=== PATIENT | female | born 1975 | race Caucasian/White ===

== ENCOUNTER 2020-09-21 13:04 | Outpatient (CLI) | payer OTHER, SELFPAY ==
--- NOTE | ~2020-09-21 | XR_ITS ---
XR shoulder LT min 2V 09/21/2020 13:34 INDICATION: Left shoulder pain PROCEDURE: 4 views left shoulder COMPARISON: No prior studies for comparison. FINDINGS: Fracture, dislocation or subluxation is not identified. The soft tissues appear within norm al limits. No foreign bodies are identified. IMPRESSION: 1: NO ACUTE BONE OR JOINT ABNORMALITY IDENTIFIED. Reviewed, dictated and finalized at location A. L PARAPROFESSIONAL
== END 2020-09-21 13:05 | disposition home or self-care (01) ==
LOC: ANHIMG 13:14
PROVIDERS: PCP Family Medicine; Visit Provider Nurse Practitioner Family
DX: S49.92XA Unspecified injury of left shoulder and upper arm, initial encounter (principal)
CPT/HCPCS: 73030

== ENCOUNTER → 2020-09-26 07:49 | Outpatient (CLI) | payer OTHER, SELFPAY ==
--- NOTE | ~2020-09-26 | MR_ITS ---
EXAMINATION: MR shoulder LT wo con DATE: 09/26/2020 09:09 INDICATION: Left shoulder injury, initial encounter. TECHNIQUE: Magnetic resonance imaging (MRI) of the left shoulder was performed without intravenous co ntrast. Sequences included axial PD-weighted FS FSE, coronal oblique PD-weighted FS FSE and T2-weight ed FS FSE, and sagittal oblique T2-weighted FS FSE and T1-weighted FSE. COMPARISON: Left shoulder radiographs 09/21/2020 FINDINGS: Coracoacromial arch: The acromion undersurface is curved in morphology (type II). There is a mesoacromial os acromiale. Th e acromioclavicular joint is normal. There is a physiologic volume of fluid in subacromial/subdeltoid bursa. Rotator cuff: There is moderate supraspinatus tendinopathy and mild infraspinatus tendinopathy. Teres minor tendon is normal. Subscapularis tendon is normal. There is no asymmetric fatty atrophy of the rotator cuff m uscle bellies. Biceps tendon and glenoid labrum: Biceps tendon is in bicipital groove. Intra-articular biceps tendon is normal. The glenoid labrum is normal. Fluid: There is a small glenohumeral joint effusion. Bones/cartilage: There is deep fissuring of the anterior-inferior glenoid cartilage. Humeral head cartilage is normal. IMPRESSION: 1. Moderate rotator cuff tendinopathy. No tear. 2. Mild glenoid chondrosis. 3. Small glenohumeral joint effusion. Reviewed, dictated and finalized at location A. D MANAGER
== END ==
PROVIDERS: PCP Family Medicine; Visit Provider Nurse Practitioner Family
DX: S49.82XA Other specified injuries of left shoulder and upper arm, initial encounter (principal); M25.412 Effusion, left shoulder
CPT/HCPCS: 73221

== ENCOUNTER → 2022-07-06 15:49 | Outpatient (CLI) | payer OTHER, SELFPAY ==
--- NOTE | ~2022-07-06 | XR_ITS ---
EXAMINATION: XR chest 2V 07/06/2022 16:13 INDICATION: Shortness of breath PROCEDURE: 2 view chest COMPARISON: 07/13/2017 FINDINGS: The lungs are clear. The cardiomediastinal silhouette is within normal limits. There are no pleural effusions. There is no pneumothorax suspected. IMPRESSION: 1: NO ACUTE CARDIOPULMONARY DISEASE. Reviewed, dictated and finalized at location B.
--- NOTE | ~2022-07-06 | US_ITS ---
US thyroid INDICATION: Hypothyroidism TECHNIQUE: Real-time sonographic images of the thyroid gland were obtained. COMPARISON: No prior studies for comparison. FINDINGS: The right thyroid lobe measures 4.7 x 1.6 x 1.5 cm. The left thyroid lobe measures 4.1 x 1 .3 x 1.3 cm. There is normal echotexture and echogenicity throughout the thyroid gland. No discrete n odules identified. Normal vascular flow is present. IMPRESSION: 1. Normal thyroid without discrete nodule or abnormal vascularity. Reviewed, dictated and finalized at location B.
== END ==
PROVIDERS: PCP Nurse Practitioner Family; Visit Provider Nurse Practitioner Family
DX: R06.02 Shortness of breath (principal); E05.90 Thyrotoxicosis, unspecified without thyrotoxic crisis or storm
CPT/HCPCS: 71046; 76536

== ENCOUNTER 2023-02-13 07:51 | Outpatient (CLI) | payer OTHER, SELFPAY | END 2023-02-13 07:52 | disposition home or self-care (01) | LOC: ANHAUDASC 07:53 | PROVIDERS: PCP Nurse Practitioner Family; Visit Provider Otolaryngology | DX: H91.92 Unspecified hearing loss, left ear (principal) | CPT/HCPCS: 92557; 92567 ==

== ENCOUNTER 2023-03-01 08:26 | Outpatient (CLI) | payer OTHER, SELFPAY ==
--- NOTE | 2023-03-23 14:32 | WPDHOMESLEEP ---
Sleep Study - Home Unattended Date of Study: 03/01/23 Ordering Provider: Glenroy Francis APRN Interpreting Provider: Leslee Padilla MD Home Sleep Study Type: Watch PAT Height: 1.75 m Weight: 90.718 kg Body Mass Index: 29.5 Neck Circumference (inches): 14 [place]: 10 Reason for Sleep Study Snoring, unrefreshing sleep Sleep History Carey Gil is a 48-year-old woman female with anxiety and hyperlipidemia that had a sleep study ordered for evaluation of sleep apnea. 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 The patient denies awakening from sleep short of breath. She occasionally awakens at night with heartburn, belching or cough. She frequently snores and is frequently loud enough that others complain. He rarely has trouble sleeping when she has a cold. He denies waking up gasping for air throughout the night. She frequently has breathing problems at night observed by herself or others. She occasionally sweats excessively at night. She occasionally has heart palpitations or irregular heartbeats during the night. She occasionally falls asleep during the day. She rarely falls asleep while driving. She denies sleep paralysis, cataplexy and hypnagogic/hypnopompic hallucinations. She occasionally has trouble at school or work due to sleepiness. She denies feeling afraid of going to sleep. He rarely has nightmares. She occasionally remembers her dreams. She constantly has thoughts racing through her mind. She occasionally feels sad or depressed. She frequently has anxiety. She frequently has muscular tension. She denies noticing parts of her body jerk. She denies kicking during the night. She frequently has crawling and aching feelings in her legs but denies having leg pain during the night. She denies grinding her teeth during sleep and denies awakening with morning jaw pain. She denies being bothered by pain during the day and denies being awakened by pain during the night. She occasionally wakes up feeling stiff in the morning. She denies waking up with sore or achy muscles. She occasionally wakes up with pain in the neck, spine or other joints. She goes to bed between 9:30 to 10:30 p.m. on weekdays between 10-11 p.m. on the weekends. She is able to fall asleep immediately. She wakes up 2-4 times throughout the night for unknown reasons and it can take 30-90 minutes for her to fall back asleep. She wakes up at 5:00 a.m. on weekdays and between 6-7 a.m. on the weekends. She typically gets 6-7 hours of sleep per night. She will stay in bed for 15-45 minutes after waking up in the morning. She currently lives with her and 3 children. She does not consume any caffeinated beverages within 2 hours of bedtime. She does not engage in physical exercise before bedtime. She denies reading and watching television before falling asleep. She denies taking naps in the afternoon or the evening. She consumes 1-2 cups of caffeinated beverage per day. She will have 2-4 alcoholic beverages per month. She denies tobacco and recreational drug use. [facility] Past Medical History Medical History Adhesive capsulitis of left shoulder Adult BMI 29.0-29.9 kg/sq m BMI 28.0-28.9,adult BMI 30.0-30.9,adult Claustrophobia Hyperlipemia Rotator cuff tendonitis Family History Family History Father Alzheimer disease Mother Alzheimer disease Sibling No problems noted. Other Cerebrovascular accident Diabetes mellitus Family history of malignant neoplasm of breast High cholesterol Social History Social History Smoking status: Never smoker Second hand tobacco smoke exposure: No Alcohol intake: current Alcohol use details: 1 per month Substance use: never Substance use type: does not use Living arrangements: with [facility]
[2023-03-23 14:38] VITALS: BMI 29.5
== END 2023-03-08 14:36 | disposition home or self-care (01) ==
LOC: ANHCSM 08:27
PROVIDERS: PCP Nurse Practitioner Family; Visit Provider Nurse Practitioner Family
DX: G47.33 Obstructive sleep apnea (adult) (pediatric) (principal)
CPT/HCPCS: 95800

== ENCOUNTER 2023-04-07 14:37 | Outpatient (CLI) | payer OTHER, SELFPAY ==
--- NOTE | 2023-04-10 07:35 | WPDPFTINT ---
PFT Procedure Performed PFT Procedure Performed Spirometry with Pre/Post Bronchodilator Plethysmography (Lung Vol) Diffusing Cap (DLCO) Flow Vol Loop PFT Interpretation This is a pulmonary function test with pre and post-bronchodilator spirometry, plethysmography and diffusing capacity. The test was performed and results interpreted in accordance with the 2019 and 2005 ATS/ERS Task Force guidelines respectively using the Global Lung Function Initiative-2012 reference equations. Patient demonstrated good effort and cooperation. Reproducibility criteria were met. The quality of the pre bronchodilator spirometry maneuver was Grade A and post bronchodilator spirometry maneuver was Grade A. Findings: Spirometry: The contour the inspiratory and expiratory flow tracing are normal. The pre bronchodilator FVC is 3.80 L, 95% predicted. The pre bronchodilator FEV1 is 3.21 L, 101% predicted. The pre bronchodilator FEV1: FVC ratio was 85%. The post bronchodilator FVC is 3.52 L, representing a 7% decrease. The post bronchodilator FEV1 is 3.00 L, representing a 7% decrease. The post bronchodilator FEV1: FVC ratio was 85%. Plethysmography: The total lung capacity is 5.86 L, 103% predicted. The functional residual capacity is 2.81 L, 88% predicted. The residual volume is 1.98 L, 100% predicted. Diffusing capacity: The diffusing capacity unadjusted for hemoglobin and carboxyhemoglobin is 18.5, 76% predicted. The diffusing capacity adjusted for alveolar volume is 5.33, 120% predicted. Impression: The spirometry is normal without evidence of an obstructive abnormality. There is no significant improvement after inhaling a single dose of albuterol. The lung volumes are normal. The diffusing capacity is normal. There are no prior studies for comparison
--- NOTE | 2023-04-10 07:38 | WPDSIXMINUTE ---
Six Minute Walk Procedure Procedure Performed Pulmonary Stress Test (6 min walk) Six Minute Walk Six Minute Walk: This is a 6 minute walk test. The test was performed and interpreted in accordance with the 2014 ERS/ATS task force guidelines. Findings: The patient's resting room air oxygen saturation measured by pulse oximetry was 97% and heart rate was 84 bpm. Patient ambulated for 427 meters and oxygen saturation remained 90 to 97%. Heart rate at the end of the study was 106 bpm. The patient did not qualify for supplemental oxygen at rest or with ambulation. There are no prior studies for comparison.
== END 2023-04-07 14:38 | disposition home or self-care (01) ==
LOC: ANHPFT 14:41
PROVIDERS: PCP Nurse Practitioner Family; Visit Provider Nurse Practitioner Family
DX: R06.09 Other forms of dyspnea (principal)
CPT/HCPCS: 94060; 94618; 94726; 94729

== ENCOUNTER 2023-11-22 09:12 | Emergency (ER) | payer OTHER, SELFPAY ==
--- NOTE | ~2023-11-22 | XR_ITS ---
EXAMINATION: XR foot RT min 3V DATE: 11/22/2023 09:59 INDICATION: Lateral right foot pain. TECHNIQUE: 4 views of right foot were obtained. COMPARISON: None. FINDINGS: Bone alignment is normal. No fracture. There is mild osteoarthritis of first metatarsophala ngeal joint and second proximal interphalangeal joint. IMPRESSION: 1. Mild polyarticular osteoarthritis. Reviewed, dictated and finalized at location A. MAKER
[2023-11-22 09:31] VITALS: BP 118/82; PULSE 75; RESP 16; TEMP 36.2; O2SAT 97
--- NOTE | 2023-11-22 09:47 | ED.EXTPRO ---
HPI - Extremity Problem General Chief complaint: Extremity Injury, Lower Stated complaint: INJURED R FOOT Time Seen by Provider: 11/22/23 09:30 Source: patient and RN notes reviewed Mode of arrival: ambulatory Limitations: no limitations History of Present Illness HPI Narrative: Patient presents today complaining of right lateral foot pain. Denies any known injury or trauma. States pain increases when she is on her feet for long periods of time or with certain shoes she wears. Denies numbness or tingling. Currently rates her pain 3/10 and has tried no [id number] treatment prior to arrival. Patient states she came in today for evaluation because she was bringing in her son to be seen. Related Data Allergies Allergy/AdvReac Type Severity Reaction Status Date / Time No Known Allergies Allergy Verified 11/22/23 09:38 Review of Systems Review of Systems: CONSTITUTIONAL: Denies body aches, fever, chills, or sweats. EYES: Denies visual changes, redness, or discharge. ENT: Denies rhinorrhea, congestion, sore throat, or otalgia. CARDIOVASCULAR: Denies chest pain, palpitations, or edema. RESPIRATORY: Denies cough or dyspnea. GASTROINTESTINAL: Denies abdominal pain, nausea, vomiting, or diarrhea. GENITOURINARY: Denies dysuria or hematuria. SKIN: Denies rash, itching, or wounds. MUSCULOSKELETAL: Denies back pain, or myalgia.+ right foot pain NEUROLOGIC: Denies headache, numbness, tingling, or weakness. PSYCH: Denies depression or anxiety. [facility] Past Medical History Medical History Adhesive capsulitis of left shoulder Adult BMI 29.0-29.9 kg/sq m BMI 28.0-28.9,adult BMI 30.0-30.9,adult Claustrophobia Hyperlipemia Rotator cuff tendonitis Family History Family History Father Alzheimer disease Mother Alzheimer disease Sibling No problems noted. 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 Please see nursing chart for further information. There is no relevant family history pertinent to the presenting complaint Exam Narrative: GENERAL: Well-appearing, well-nourished, and in no acute distress. HEAD: Normocephalic, atraumatic. EYES: EOMI. No redness or drainage. Conjunctivae normal. ENT: Mucous membranes pink and moist. NECK: Normal AROM. CHEST: No respiratory distress. EXTREMITIES: Right foot: Patient localizes the pain to the 5th metatarsal, but this area is nontender to palpation. No edema, erythema, or ecchymosis. Distal sensation intact in all 5 toes. Capillary refill normal. Pedal pulse normal. Full range of motion of the ankle and toes without discomfort. SKIN: Warm, dry, no rash. Capillary refill normal. Normal skin turgor. NEURO: No focal deficits. Alert and oriented x3. Gait steady. PSYCH: Normal affect. No signs of depression or anxiety. Course Course Level of Care: Express Care Visit Vital Signs Vital signs: Vital Signs Temperature 97.2 F L 11/22/23 09:31 Pulse Rate 75 11/22/23 09:31 Respiratory Rate 16 11/22/23 09:31 Blood Pressure 118/82 11/22/23 09:31 Pulse Oximetry 97 11/22/23 09:31 Oxygen Delivery Room Air 11/22/23 09:
== END 2023-11-22 10:26 | disposition home or self-care (01) ==
PROVIDERS: Emergency Provider Nurse Practitioner; PCP Family Medicine
DX: M79.671 Pain in right foot (principal); E78.5 Hyperlipidemia, unspecified
CPT/HCPCS: 73630; 99213; G0463

== ENCOUNTER 2025-04-14 07:51 | Outpatient (CLI) | payer OTHER, SELFPAY ==
--- OUTSIDE RECORDS SUMMARY | 2025-04-14 07:54 | XMS_ITS | Clinical Summary ---
Author Organization [facility] Address [address] [facility] [place] [address] Care Team Providers Care Pot Liner Name Role Phone Jai Acuna MD Primary Care Provider [phone] Allergies No known active allergies Medications atorvastatin (LIPITOR) 20 mg tablet Take 10 mg by mouth late in the day . Active escitalopram oxalate (LEXAPRO) 10 mg tablet Take 5 mg by mouth daily Takes 1/2 tab(10 mg tab) total dose 5 mg . Active ergocalciferol (VITAMIN D2) 50,000 unit capsule Take 50,000 Units by mouth every 7 days. 06/24/2017 Active Active Problems Problem Noted Date Diagnosed Date Leukopenia 07/13/2017 Family History Medical History Relation Name Comments Healthy Brother 1 Healthy Brother 2 Diabetes Father Other Father Breast Cancer Mother Healthy Sister Relation Name Status Comments Brother 1 Alive Brother 2 Alive Father Alive Mother Sister Alive Social History Tobacco Use Types Packs/Day Years Used Date Smoking Tobacco: Never Alcohol Use Standard Drinks/Week Comments Yes 0 (1 standard drink = 0.6 oz pur e alcohol) occasional Comments No Sex and Gender Information Value Date Recorded Sex Assigned at Not on file Legal Sex Female 11:16 AM CDT Gender Identity Not on file Sexual Orientation Not on file Last Filed Vital Signs Vital Sign Reading Time Taken Comments Blood Pressure 113/68 07/21/2017 9:23 AM CDT Pulse 82 07/21/2017 9:23 AM CDT Temperature 36.8 C (98.3 F) 07/21/2017 9:23 AM CDT Respiratory Rate 16 07/21/2017 9:23 AM CDT Oxygen Saturation - - Inhaled Oxygen Concentration - - Weight 85.7 kg (189 lb) 07/21/2017 9:23 AM CDT Height 175.3 cm (5' 9) 07/21/2017 9:23 AM CDT Body Mass Index 27.91 07/21/2017 9:23 AM CDT Plan of Treatment Health Maintenance Due Date Last Done Comments DTAP/TDAP/TD VACCINES (1 - Tdap) 1993 HEPATITIS B VACCINES (1 of 3 - 19+ 3-dose series) 01/08 HPV/Cotest (21-29) 1995 CERVICAL CANCER SCREENING 01/27/2004 HPV/Cotest (30-65) 01/27/2004 PAP SMEAR 01/27/2004 BREAST CANCER SCREENING 2014 COLORECTAL SCREENING 2019 Colorectal Cancer Screening 2019 FIT-DNA Q 3 years 2019 FIT/FOBT Q 1 year 2019 Flex Sig/CT Colonography Q 5 years 2019 ZOSTER VACCINE (1 of 2) 01/27/2024 INFLUENZA VACCINE (#1) 2025 Insurance [employer] CHOICE POS II [facility] [id number] Care Teams Pot Liner Relationship Specialty Start Date End Date Jai Acuna MD [address] [place] [address] PCP - General Family Practice 07/04/17
--- OUTSIDE RECORDS SUMMARY | 2025-04-14 07:54 | XMS_ITS | Data Portability ---
Author Organization [place] - [facility] , [facility] Address [address] [place] [address] Assessment Encounter Date Assessment Date Assessment LastModified by Organization Details LastModified Time 10/09/2024 10/09/2024 patient will follow up with PCP in 2-3 days if no improvement discussed red flags and when to go to emergency room. Patient verbalized understanding of plan of care. [email or web address] Not available 10/09/2024 12:45:06 Plan of Treatment Reminders Order Date Submit Date Provider Last Modified By Organization Details Last Modified Time Details Appointments None recorded. Lab None recorded. Referral None recorded. Procedures None recorded. Surgeries None recorded. Imaging None recorded. Medication Orders cyclobenzap rine 10 mg tablet 2024 025 [facility], [address], [place], [id number], 14:22:34 naproxen 500 mg tablet 2024 025 [facility], [address], [place], [id number], 14:22:33 Zyrtec 10 mg tablet 2024 025 [facility], [address], [place], [id number], 12:47:10 amoxicillin 875 mg-potassiu m clavulanate 125 mg tablet 2024 025 [facility], [address], [place], [id number], 12:46:36 fluticasone propionate 50 mcg/actuati on nasal spray,suspe nsion 2024 025 [facility] #19359, [address], [place], [id number], 12:46:35 Patient TargetsNo targets recorded. Patient Instructions Encounter Date Encounter Id Patient Instructions Last Modified By Organization Details Last Modified Time 10/09/2024 [id number] Acute Sinusitis: Care Instructions [email or web address] Not available 10/09/2024 12:46:29 saline nasal washes: care instructions [email or web address] Not available 10/09/2024 12:46:29 Acute Sinusitis: Care Instructions [email or web address] Not available 10/09/2024 12:46:29 Acute Sinusitis: Care Instructions Not available 10/09/2024 12:46:29 10/16/2024 [id number] back pain: care instructions Not available 10/16/2024 14:22:26 back stretches: exercises Not available 10/16/2024 14:22:26 Summary of Today's Visit: Today, you shared that you're experiencing significant back pain, which began after having a cold and shoveling snow. The pain is primarily in the middle right side of your back, and it's challenging to stand or walk upright. You've been to a chiropractor, but following adjustments, your discomfort has persisted. Managing Back Pain: We suspect you have a muscle strain. To manage this, you'll be prescribed a muscle relaxer and an anti-inflammatory medication, which will be available at your [facility] in [place]. Remember, it's essential not to take muscle relaxers while driving or working, as they might cause drowsiness. Preferably, take them at bedtime or when you're not planning to go out. Home Care Instructions: At home, alternate between applying ice and heat to your back to help relieve the pain. Use a back support, which you can order online; some come with a removable gel pack that can be chilled or heated. This may help with comfort throughout the day, especially if you're sitting or standing for extended periods at work. Precautionary Measures: Avoid activities that could worsen your back strain, such as heavy lifting or sudden movements. Gentle stretches may help, but ensure they're not painful. If you notice any alarming symptoms like shooting pains down your legs, seek further medical attention immediately. Follow-Up Actions: - Start using the prescribed muscle relaxer and anti-inflammatory . - Purchase a suitable back support with a gel insert for cold and heat therapy. - Monitor your symptoms for any changes or worsening and seek in-person care if necessary. - Consider consulting urgent care if the pain does not improve or if you need additional pain relief options. Reach out promptly if there are new or worsening symptoms. Take care of yourself, Carey. Not available 10/16/2024 14:27:03 Reason for Referral None Reported. Problems Name Problem SNOMED Code Status Onset Date Resolution Date Notes Provider Name and Address Organization Details Recorded Time Acute low back pain 460232114 Active 025 DRAKE De Souza [address] [place] [address], [place], [address], [facility] - [facility] 14:19:10 Problem Notes None recorded. Medical Equipment None Reported. Allergies No known drug allergies Medications Name Sig Start Date Stop Date Status Note LastModified by Organization Details LastModified Time cyclobenzap rine 10 mg tablet Take 1 tablet 3 times a day by oral route for 7 days. 2024 active Not Available Not Available Not Avai lable Zyrtec 10 mg tablet Take 1 tablet every day by oral route. 2024 active Not Available Not Available Not Avai lable triamcinolo ne acetonide 0.1 % topical cream active [NOT AIRAM Cameron] Not Available Not Available Not Available fluticasone propionate 50 mcg/actuati on nasal spray,suspe nsion [place] 1 spray every day by intranasa l route for 14 days. 2024 active Not Available Not Available Not Avai lable naproxen 500 mg tablet Take 1 tablet twice a day by oral route for 7 days. 2024 active Not Available Not Available Not Avai lable amoxicillin 875 mg-kiersten elena clavulanate 125 mg tablet Take 1 tablet every 12 hours by oral route for 7 days. 2024 active Not Available Not Available Not Avai lable atorvastati n active Not Available Not Available Not Available prednisone 10/16 completed Not Available Not Available Not Available buspirone active Not Available Not Heather ilable Not Available Vitals Date Recorded Respiratory rate Heart rate Body height Body mass index (BMI) Body weight Provider Name and Address Organization Details Last Updated DateTime 10/16/2024 16 /min 75 /min 175.26 cm 29.5 kg/m2 69967.4 7 g DRAKE De Souza 1 [facility] [address], [place], [address], [place] - [facility] 14:23:56 Social History None recorded. Functional Status None recorded. Mental Status None recorded. Family History Nothing Reported. Medical History Condition Response High cholesterol Y Seasonal allergies / allergic rhinitis Y Gynecological HistoryNo gynecological history recorded. Obstetrics History GPAL:G 0 P 0 0 0 0 Past Encounters Encounter ID Performer Location Encounter Start Date Encounter Closed Date Diagnosis/Indication Diagnosis SNOMED-CT Code Diagnosis ICD10 Code Diagnosis Note [id number] [facility] [place] [address] 10/09/2024 12:40:13 10/09/2024 12:49:41 Acute sinusitis 10312657 J01.90 Acute maxi llary sinusitis 36327439 J01.00 Acute bact erial sinusitis 64891138 J01.[id number] [facility] [place] [address] 10/16/2024 14:13:07 10/16/2024 20:25:32 Acute low back pain [id number] M54.50 Back strain - supported by the patient's report of middle back pain after shoveling snow, tenderness , and severe pain when bending or sitting. - Prescribe a muscle relaxer for use when not driving or working; recommende d taking it at bedtime or up to three times a day if resting at home.- Prescribe an anti-infla mmatory and send the prescripti on to the patient's [facility]. - Advise the patient to apply cold packs to the back and alternate with heat.- Suggest purchasing a back support that has a removable disc for temperatur e modificati on.- Instruct on performing specific stretches and send back pain care instructio ns.- Advise seeking urgent care if symptoms worsen, such as developmen t of shooting pain or inability to walk.- Recommend avoiding activities that might aggravate the back, and consider a hot tub soak for relief. Health Concerns Section Related Observation LastModified by Organization Detai ls LastModified Time None Recorded Concern Status LastModified by Organization Details LastModified Time None Recorded Advance Directives Directive None Recorded Payers Insurance Date Sequence Insurance Name Policy Number Policy Enrique Covered Member ID Enrique Member ID Guarantor Name 10/16/2024 2 [facility] [id number] Carey Jeffery [id number] Carey Jeffery 10/16/2024 [employer] [id number] Carey Jeffery [id number] Carey Jeffery 10/09/2024 1 *SELF PAY* De nise Jeffery 10/09/2024 3 *SELF PAY* [id number] Carey Jeffery [id number] Carey Jeffery 10/22/2024 1 [facility] [place] [id number] Carey Jeffery [id number] Carey Jeffery Notes Date Note Type Note Provider Name and Address Organization Details Recorded Time 10/09/2024 text/html Patient sitting comfortably for the televisual visit. Appears in no distress. patent is able to answer questions without difficulty. No difficulty with sound or camera for the visit.Parent/patie nt gives verbal consent for telehealth visit. Patient is in ___[place] state.Patient is at home address and provider is in [facility] ient understands the limitations with the telehealth/televis ual visit. Family understands vitals and a more thorough exam would be performed in a face to face encounter. Patient preferred telehealth visit rather than face to face visit. Family does not have any further questions regarding the symptoms, treatment or the telehealt visti. Family understands and agrees that if ther are any changes to the symptoms a re-ecvaluation is necessary in the express care or PCP office. Family also understands that ifther eare any severe symptroma-such as sever pain, chest pain, shoretness of breath, uncontrolled or ne fever that 911 is to be called or immediate transfer to the emergency department Medina Aguilar, DRAKE [address] [facility] [address], [place], [address], [facility] [employer] 10/09/2024 12:47:22 10/16/2024 text/html Call connected, patient greeted. Patient name, , telephone number and pharmacy, and location verified verbally with the patient. Telemedicine limitations reviewed, answered all questions the patient had about the telehealth interaction, and verbal consent obtained to treat. Clinician attests they are physically located in the following state at the time of visit: [place]. The patient also consents to the use of AI scribe technology. HPI: The patient presents with severe middle/low Right sided back pain that began last week following a persistent cough from a cold. The pain initially started in the lower back and then moved to the right side of the middle back after shoveling snow on Monday. The patient describes the pain as severe, with a score of nine out of ten, making it difficult to stand or walk. The pain is localized in the muscle on the right side of the spine and is exacerbated by standing straight or bending to the right. There is tenderness upon touch, but no numbness, tingling, or shooting pain down the legs. The patient denies fever, numbness between the legs, or any bowel or bladder issues. They have been taking ibuprofen, as recently as half an hour before the visit, but it has not provided significant relief. The patient visited a chiropractor for relief earlier today, which involved neck adjustments, but this did not include any specific massage to the affected area and did not alleviate the symptoms. The pain was notably intense when sitting down in the bathroom, yet the patient has been able to maintain bowel and bladder functions normally. 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 The patient is currently finishing up an antibiotic course for a previous sinus infection and takes Lipitor for cholesterol management. They also use Flonase daily due to seasonal allergies. The patient denies any other significant medical history or recent COVID exposures. DRAKE De Souza 1 [facility] [address], [place], [address], [place] - [facility] 10/16/2024 14:27:22 OBGyn Episode No OBEpisode recorded.
--- NOTE | 2025-04-14 08:01 | ECHO_ITS ---
Patient Info Name: Carey Gil Age: 50 years : 1975 Gender: Female Ht: 68 in Wt: 200 lbs BSA: 2.11 m2 HR: 62 bpm BP: 136 / 78 mmHg Technical Quality: Good Exam Date: 04/14/2025 8:08 AM Patient Status: O Admit Date: 04/14/2025 Exam Type: CA echo doppler color flow Complete two-dimensional, color flow and Doppler transthoracic echocardiogram is performed. Strain analysis performed. Stripe Matcher: Maru Anguiano Attending Provider: Monique Null Summary 1. Complete two-dimensional, color flow and Doppler transthoracic echocardiogram is performed. 2. Left ventricular chamber dimension is normal. 3. Left ventricular systolic function is normal, estimated at 60-65. 4. There is mild concentric increased left ventricular wall thickness. 5. The left ventricular diastolic function is grade I diastolic dysfunction. 6. Global longitudinal strain is normal at -17.7%. 7. E/e' 10 is mildly elevated. 8. Left atrial chamber dimension is mildly enlarged. 9. There is trace tricuspid valve regurgitation. Left Ventricle E/e' 10 is mildly elevated. Left ventricular chamber dimension is normal. Left ventricular systolic function is normal, estimated at 60-65. There is mild concentric increased left ventricular wall thickness. The left ventricular diastolic function is grade I diastolic dysfunction. Global longitudinal strain is normal at -17.7%. Right Ventricle Right ventricular chamber dimension is normal. Right ventricular systolic function is normal. Left Atria Left atrial chamber dimension is mildly enlarged. Right Atria Right atrial chamber dimension is normal. Aortic Valve The aortic valve is trileaflet. There is no aortic valve stenosis. There is no aortic valve regurgitation. Pulmonic Valve There is no pulmonic regurgitation. Mitral Valve There is no mitral valve stenosis. There is no mitral valve regurgitation. Tricuspid Valve There is trace tricuspid valve regurgitation. RVSP is not measured due to an inadequate TR jet. Pericardium/Pleural There is no pericardial effusion. Inferior Vena Cava Normal inferior vena cava with >50% collapse upon inspiration consistent with normal right atrial pressure, 5 mmHg. Aorta The aortic root size at the sinus of Valsalva is normal. Left Ventricular Outflow Tract Name Value Normal LVOT 2D LVOT Diameter 2.0 cm LVOT Doppler LVOT Peak Velocity 82 cm/s LVOT Peak Gradient 3 mmHg LVOT Mean Gradient 2 mmHg LVOT VTI 18 cm LVOT VTI/AV VTI Ratio 0.8 LVOT Stroke Volume 56 ml LVOT CO 3.3 l/min LVOT CI 1.6 l/min/m2 Pulmonic Valve Name Value Normal RVOT Doppler RVOT Peak Velocity 59 cm/s RVOT Peak Gradient 1 mmHg PV Doppler PV Peak Velocity 77 cm/s PV Peak Gradient 2 mmHg Mitral Valve Name Value Normal MV Diastolic Function MV E Peak Velocity 76 cm/s MV A Peak Velocity 77 cm/s MV E/A 1.0 MV Decel Time (PW) 151 ms Tricuspid Valve Name Value Normal Estimated PAP/RSVP RA Pressure 5 mmHg <=5 Aorta Name Value Normal Ascending Aorta Ao Root Diameter (MM) 3.3 cm Ao Root Diam Index (MM) 1.6 cm/m2 Aortic Valve Name Value Normal AV Doppler AV Peak Velocity 105 cm/s AV Peak Gradient 4 mmHg AV Mean Gradient 3 mmHg AV VTI 24 cm AV Area (Cont Eq VTI) 2.3 cm2 >=3.0 AV Area (Cont Eq Jackson) 2.4 cm2 AV DI (Jackson) 0.79 AV Regurgitation 2D LVOT Area 3.0 cm2 Ventricles Name Value Normal LV Dimensions 2D/MM IVS Diastolic Thickness (2D) 0.9 cm 0.6-1.0 IVS Diastole Thickness (MM) 1.4 cm 0.6-0.9 LVID Diastole (2D) 4.7 cm 3.8-5.2 LVID Diastole (MM) 5.4 cm 3.8-5.2 LVIW Diastolic Thickness (2D) 1.2 cm 0.6-0.9 LVIW Diastolic Thickness (MM) 0.9 cm 0.6-0.9 LVID Systole (2D) 3.2 cm 2.2-3.5 LVID Systole (MM) 3.3 cm 2.2-3.5 LVOT Diameter 2.0 cm LV Mass (2D Cubed) 174.73 g 67.00-162.00 LV Mass Index (2D Cubed) 83 g/m2 43-95 Relative Wall Thickness (2D) 0.50 <=0.42 LV Mass (MM Cubed) 251.05 g 67.00-162.00 LV Mass Index (MM Cubed) 119 g/m2 43-95 Relative Wall Thickness (MM) 0.32 LV Fractional Shortening/Ejection Fraction 2D/MM LV Fractional Shortening (2D) 32 % 27-45 LV Fractional Shortening (MM) 39 % 27-45 LV EF (MM Teichholz) 69 % LV EF (2D Teichholz) 60 % LV Diastolic Volume (4C MOD) 59 ml LV EF (4C MOD) 63 % LV Diastolic Volume (2C MOD) 68 ml LV EF (2C MOD) 65 % LV Diastolic Volume (BP MOD) 63 ml 46-106 LV Diastolic Volume Index (BP MOD) 30 ml/m2 29-61 LV Systolic Volume (BP MOD) 23 ml 14-42 LV Systolic Volume Index (BP MOD) 11 ml/m2 8-24 LV EF (BP MOD) 63 % 54-74 LV Diastolic Length (4C) 8.0 cm LV Systolic Length (4C) 6.5 cm LV Stroke Volume (4C MOD) 37 ml Atria Name Value Normal LA Dimensions LA Dimension (MM) 3.4 cm 2.7-3.8 LA Volume (4C A-L) 47 ml LA Volume (BP A-L) 46 ml RA Dimensions RA Systolic Major Grants Length (4C) 5.3 cm 2.2-2.8 RA Area (4C) 15.1 cm2 <=18.0 EchoPAC Name Value Normal AutoEF LVCO_BiP_Q (Dmej7YMP) 2.6 l/min LVEF_BiP_Q (Ljbp5NJS) 61 % LVSV_BiP_Q (Xugs4DFY) 47 ml LVVED_BiP_Q (Xuvi9JBK) 76 ml LVVES_BiP_Q (Vome2WTW) 29 ml HR_4Ch_Q (Veme1XKN) 51 bpm LVCO_4Ch_Q (Tvck0EAK) 2.0 l/min LVEF_4Ch_Q (Mmxs4BWC) 63 % LVLd_4Ch_Q (Ktod1PRJ) 7.8 cm LVLs_4Ch_Q (Frpm2IIN) 6.5 cm LVSV_4Ch_Q (Dyij7PIQ) 40 ml LVVED_4Ch_Q (Xuyy6RKV) 64 ml LVVES_4Ch_Q (Mrrr6MCT) 24 ml HR_2Ch_Q (Nhyg7AFA) 57 bpm LVCO_2Ch_Q (Oemm8UZV) 3.1 l/min LVEF_2Ch_Q (Motf5MTM) 60 % LVLd_2Ch_Q (Bjcn3CIU) 8.2 cm LVLs_2Ch_Q (Opxn1UQZ) 6.9 cm LVSV_2Ch_Q (Tmjb9CFU) 55 ml LVVED_2Ch_Q (Ztfb9AZE) 91 ml LVVES_2Ch_Q (Hooy2FTG) 36 ml JOHN LV Apical Anterior Longitudinal Strain (JOHN) -11.7 % LV Apical Anteroseptal Longitudinal Strain (JOHN) -18.4 % LV Apical Inferior Longitudinal Strain (JOHN) -22.1 % LV Apical Lateral Longitudinal Strain (JOHN) -7.6 % LV Apical Posterior Longitudinal Strain (JOHN) -9.6 % LV Apical Septal Longitudinal Strain (JOHN) -19.6 % AV Closure (JOHN) 438 ms LV Basal Anterior Longitudinal Strain (JOHN) -20.6 % LV Basal Anteroseptal Longitudinal Strain (JOHN) -13.3 % LV Basal Inferior Longitudinal Strain (JOHN) -16.6 % LV Basal Anterolateral Longitudinal Strain (JOHN) -24.0 % LV Basal Inferolateral Longitudinal Strain (JOHN) -27.6 % LV Basal Inferoseptal Longitudinal Strain (JOHN) -18.9 % LV Global Longitudinal Strain (2C JOHN) -18.2 % LV Global Longitudinal Strain (4C JOHN) -17.3 % LV Global Longitudinal Strain (APLAX JOHN) -17.6 % LV Global Longitudinal Strain (JOHN) -17.7 % LV Mid Anterior Longitudinal Strain (JOHN) -17.9 % LV Mid Anteroseptal Longitudinal Strain (JOHN) -13.5 % LV Mid Inferior Longitudinal Strain (JOHN) -16.7 % LV Mid Anterolateral Longitudinal Strain (JOHN) -17.1 % LV Mid Inferolateral Longitudinal Strain (JOHN) -22.2 % LV Mid Inferoseptal Longitudinal Strain (JOHN) -15.2 % Report Signatures
--- NOTE | 2025-04-30 13:12 | WPDHOLTEREM ---
Holter/Event Monitor Holter/Event Monitor Date of procedure: 04/14/25 Holter/Event Procedure: 3-7 Day Holter Monitor Indications: Palpitations Conclusion: 1. 3 days holter monitor on 04/14/25. 2. Underlying rhythm is sinus rhythm. HR range 44-130 bpm; average HR 79 bpm. HR at 44 bpm was on 04/15/25 at 3:41 am. 3. There are rare premature supraventricular complexes. No supraventricular tachycardia. 4. There are rare premature ventricular complexes and rare ventricular couplets. No ventricular tachycardia. 5. No significant pauses greater than 3 seconds. 6. Patient reports 6 episodes of symptoms of heart racing, chest pain, irregular beats, shortness of breath which demonstrate sinus rhythm, HR range 67-101 bpm.
== END 2025-04-14 07:52 | disposition home or self-care (01) ==
LOC: ANHCARD 07:52
PROVIDERS: PCP Family Medicine; Visit Provider Physician Assistant Medical
DX: R93.1 Abnormal findings on diagnostic imaging of heart and coronary circulation (principal); R06.09 Other forms of dyspnea; R00.2 Palpitations; R06.02 Shortness of breath
CPT/HCPCS: 93242; 93306

== ENCOUNTER 2025-08-25 08:08 | Emergency (ER) | payer OTHER, SELFPAY ==
[2025-08-25 08:19] VITALS: BP 142/77; PULSE 85; RESP 20; TEMP 36.8; O2SAT 99
--- NOTE | 2025-08-25 10:17 | ED.SKABFB ---
HPI - Skin/Abscess/Foreign Bdy General Chief complaint: Skin/Abscess/Foreign Body Stated complaint: Spider bite R leg Time Seen by Provider: 08/25/25 09:05 Source: patient Mode of arrival: ambulatory Limitations: no limitations History of Present Illness HPI narrative: Patient is a 50-year-old female who presents the ED with concern for a spider bite. Patient reports she 1st noticed a possible spider bite to her R posterior knee around 1 week ago. Did not see a spider, but was working outside. States her posterior knee was very itchy and somewhat painful. She saw a telehealth DrIsabella yesterday and was started on Keflex. Reports today she noticed redness streaking up her posterior right thigh. She reports intermittent chills, subjective fever. Denies right lower extremity pain or swelling. Related Data Allergies Allergy/AdvReac Type Severity Reaction Status Date / Time No Known Allergies Allergy Verified 08/25/25 08:12 Review of Systems Review of Systems: All systems reviewed & are unremarkable except as noted in HPI. All systems reviewed & are unremarkable except as noted in HPI and below PMFSH Past Medical History Medical History BMI 30.0-30.9,adult Adult BMI 29.0-29.9 kg/sq m Claustrophobia Rotator cuff tendonitis Adhesive capsulitis of left shoulder BMI 28.0-28.9,adult Hyperlipemia Family History Family History Father Alzheimer disease Mother Alzheimer disease Sibling No problems noted. 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 HEAD: Normocephalic, atraumatic. RESPIRATORY: Airway patent, respirations nonlabored. CARDIOVASCULAR: Regular rate and rhythm MUSCULOSKELETAL: Moves all extremities. No gross deformities. Area of erythema/warmth, small purple macular lesions to R superior popliteal region, focal TTP. Area of streaking erythema up to posterior mid R thigh. No pain/swelling throughout R lower extremity SKIN: Warm, dry, normal color. NEURO: A&O X3. Speech clear. Cranial nerves II-XII grossly intact. No ataxic movements. PSYCHIATRIC: Appropriate mood and affect. Normal interaction. Course Vital Signs Vital signs: Vital Signs Temperature 98.3 F 08/25/25 08:19 Pulse Rate 85 08/25/25 08:19 Respiratory Rate 20 08/25/25 08:19 Blood Pressure 142/77 H 08/25/25 08:19 Pulse Oximetry 99 08/25/25 08:19 Temperature 98.3 F 08/25/25 08:19 Pulse Rate 78 08/25/25 11:15 Respiratory Rate 16 08/25/25 11:15 Blood Pressure 132/74 08/25/25 11:15 Pulse Oximetry 99 08/25/25 11:15 MDM - Skin/Abscess/Foreign Bdy MDM Narrative Medical decision making narrative: Patient presented to ED with concern for spider bite to right posterior knee/thigh, streaking redness. Vital signs are stable upon arrival. Patient is in no acute distress. Afebrile. Nontoxic appearing. Has been started on Keflex yesterday. Given antibiotic coverage for less than 24 hours, do not feel patient has failed outpatient therapy. Discussed starting additional antibiotic, doxycycline, and continue to monitor for signs of worsening. Utilize shared decision-making. Patient is in agreement this plan and feels comfortable going home at this time. Skin erythema was marked with skin marker. Discussed very strict return precautions, low threshold to return for IV antibiotics. Patient voiced understanding. Again in agreement with plan. Discharged in stable condition. Medical Records Attestation: I reviewed the patient's medical records. Discharge Plan Discharge Clinical Impression: Insect bite, Cellulitis of right thigh Patient Disposition: Home Condition: Stable Instructions: Antibiotic Form, Cellulitis (ED), Insect Bite or Sting (ED) Additional Instructions: Take additional antibiotics as prescribed. Continue Keflex. Monitor closely for signs of worsening infection/spreading redness. You may use cool compresses to area. Follow-up with your primary care doctor for further evaluation. Return to the ED if you experience worsening or severe redness, severe pain, persistent fevers, unable to keep down food/drink/antibiotics, or any other symptoms of concern. Patient Language: Kyrgyz Prescriptions: New doxycycline monohydrate 100 mg tablet 100 mg PO BID 7 Days Qty: 14 0RF No Action buspirone 10 mg tablet 5 mg PO DAILY Qty: 60 3RF escitalopram oxalate [Lexapro] 10 mg tablet 5 mg PO DAILY Qty: 90 0RF atorvastatin 10 mg tablet 10 mg PO DAILY Qty: 90 2RF levothyroxine [Levoxyl] 25 mcg tablet 25 mcg PO DAILY Qty: 90 0RF Follow-up/Referrals: Jai Acuna MD [Primary Care Provider, Family Practice] Time of Disposition: 10:19
[2025-08-25] MEDS: DOXYCYCLINE HYCLATE 100 MG TABLET PO (11:04)
[2025-08-25 11:15] VITALS: BP 132/74; PULSE 78; RESP 16; O2SAT 99
== END 2025-08-25 11:18 | disposition home or self-care (01) ==
PROVIDERS: Emergency Provider Physician Assistant; PCP Family Medicine
DX: L03.115 Cellulitis of right lower limb (principal); S80.261A Insect bite (nonvenomous), right knee, initial encounter; W57.XXXA Bitten or stung by nonvenomous insect and other nonvenomous arthropods, initial encounter
CPT/HCPCS: 99283; A9270